=== PATIENT | female | born 1985 | race Two or more races ===

== ENCOUNTER → 2018-01-02 | Outpatient (CLI) | payer OTHER ==
[2015-04-06 18:21] VITALS: BP 104/46
[~2018-01-02] MED LIST: METF500T16 PO
--- NOTE | 2018-01-02 15:55 | RAD ---
THYROID ULTRASOUND History: THYROID DYSFUNCTION Comparison: None. Findings: Multiple sonographic images of the thyroid gland are submitted. Right lobe measured 4.9 x 1.7 x 1.2 cm. Left lobe measured 3.4 x 1.2 x 1 cm. Isthmus measured 0.3 cm in thickness. No discrete thyroid nodularity is demonstrated. Thyroid parenchyma is fairly homogeneous bilaterally without asymmetric hypervascularity. Impression: 1. No significant abnormality is demonstrated. Electronically signed by: Adalid Brenner MD (01/02/2018 3:52 PM) [id number]
== END | disposition home or self-care (01) ==
LOC: US 15:04
PROVIDERS: ATTEND Physician Assistant Medical
DX: E07.9 Disorder of thyroid, unspecified (principal)
CPT/HCPCS: 76536